=== PATIENT | male | born 1940 | race Caucasian/White ===

== ENCOUNTER 2021-04-17 08:40 | Inpatient (IN) | payer MEDICARE, MEDICAID ==
[~2021-04-17] VITALS: Ht 177.8 cm; Wt 74.2 kg
[2021-04-17] MEDS ORDERED: LevETIRAcetam 1,000 MG in DEXTROSE 5%-WATER 100 ML IV ONE (09:15)
[2021-04-17 09:24] LABS: BASOPHILS % (AUTO) 0.7 % (0.0-2.0); HEMATOCRIT 41.1 % (41-53); HEMOGLOBIN 13.5 g/dL (13.5-17.5); LYMPHOCYTES % (AUTO) 10.6 % (22.0-44.0); MEAN CORPUSCULAR HEMOGLOBIN 31.6 pg (26.0-34.0); MEAN CORPUSCULAR HGB CONC 32.9 G/dL (31.0-37.0); MEAN CORPUSCULAR VOLUME 96 fL (80-100); MONOCYTES # (AUTO) 0.6 K/uL (0.1-1.0); MONOCYTES % (AUTO) 6.6 % (2.0-9.0); NEUTROPHILS # (AUTO) 7.7 K/uL (1.8-7.7); NEUTROPHILS % (AUTO) 80.1 % (40.0-70.0); PLATELET COUNT (AUTO) 325 K/uL (150-450); RED BLOOD CELL COUNT(AUTO) 4.28 MIL/uL (4.50-5.90); RED CELL DISTRIBUTION WIDTH 13.9 % (11.5-14.5)
[2021-04-17 09:30] LABS: COVID AG,FIA SOURCE NASOPHARYNGEAL
[2021-04-17 09:35] LABS: ANION GAP 14 mmol/L (8-16); CALCIUM, TOTAL 8.9 mg/dL (8.8-10.5); CARBON DIOXIDE 25 mmol/L (22-29); CHLORIDE 106 mmol/L (98-107); CREATININE 0.94 mg/dL (0.60-1.30); GLOMERULAR FILTR. RATE CALC > 60 mL/min (>60); GLUCOSE,RANDOM 116 mg/dL (70-110); POTASSIUM 4.2 mmol/L (3.5-5.1); SODIUM SERUM 145 mmol/L (136-145); UREA NITROGEN, BLOOD 29 mg/dL (7-18)
[2021-04-17 09:40] LABS: INR 1.1 (0.9-1.1); PROTHROMBIN TIME 11.4 SEC (9.4-11.6)
[2021-04-17 09:41] LABS: ALANINE AMINOTRANSFERASE 29 U/L (12-78); ALBUMIN 2.9 g/dL (3.4-5.0); ALKALINE PHOSPHATASE 121 U/L (46-116); ASPARTATE AMINOTRANSFERASE 22 U/L (15-37); BILIRUBIN,TOTAL 0.3 mg/dL (0.1-1.0); TOTAL PROTEIN, SERUM 7.3 g/dL (6.4-8.2)
[2021-04-17 09:48] LABS: LACTIC ACID 5.5 mmol/L (0.4-2.0)
[2021-04-17] MEDS ORDERED: ACETAMINOPHEN 1000 MG/ISO-OSM 100 ML IV ONE (10:00)
[2021-04-17] MEDS ORDERED: VANCOMYCIN HCL 1 GM/D5% WATER 200 ML IV ONE (10:00)
[2021-04-17] MEDS ORDERED: PIPERACILLIN/TAZO 3.375 GM/D5W 50 ML IV ONE (10:00)
[2021-04-17] MEDS ORDERED: SODIUM CHLORIDE 0.9% 1,000 ML IV ONE ×2 (10:00→11:45)
[2021-04-17] MEDS ORDERED: ONDANSETRON HCL 4 MG/2 ML VIAL IVP PRN (10:45)
[2021-04-17] MEDS ORDERED: 0.9% SODIUM CHLORIDE 10 ML SYRINGE IVP PRN (10:45)
[2021-04-17] MEDS ORDERED: ACETAMINOPHEN 325 MG TABLET PO PRN (10:45)
[2021-04-17 17:36] VITALS: BP 107/69
[2021-04-17] MEDS ORDERED: COLL30OI TP (20:00)
[2021-04-17] MEDS ORDERED: APIX5TAB4 PO (20:16)
[2021-04-17] MEDS ORDERED: DONE5TAB5 PO (20:16)
[2021-04-17] MEDS ORDERED: FE PR (20:16)
[2021-04-17] MEDS ORDERED: MELA5TAB21 PO (20:16)
[2021-04-17] MEDS ORDERED: MOM30 PO (20:16)
[2021-04-17] MEDS ORDERED: ASCO500 PO (20:16)
[2021-04-17] MEDS ORDERED: MEMA5 PO (20:16)
[2021-04-17] MEDS ORDERED: NUTR1PAC14 PO (20:16)
[2021-04-17] MEDS ORDERED: ATOR20TA65 PO (20:16)
[2021-04-17] MEDS ORDERED: SERT-158 PO (20:16)
[2021-04-17] MEDS ORDERED: DOCU-119 PO (20:16)
[2021-04-17] MEDS ORDERED: MULT-248 PO (20:16)
[2021-04-17] MEDS ORDERED: HYDR25TA82 PO (20:16)
[2021-04-17 20:47] VITALS: BP 118/71
[2021-04-18 00:35] VITALS: BP 117/65
[2021-04-18] MEDS ORDERED: LORazepam 2 MG/ML VIAL ONE (03:44)
[2021-04-18] MEDS: LORazepam 2 MG/ML VIAL IVP PRN (03:50)
[2021-04-18 04:02] VITALS: BP 136/81
[2021-04-18 06:12] LABS: BASOPHILS % (AUTO) 1.4 % (0.0-2.0); EOSINOPHILS % (AUTO) 6.8 % (1.0-6.0); HEMATOCRIT 39.3 % (41-53); HEMOGLOBIN 12.8 g/dL (13.5-17.5); LYMPHOCYTES # (AUTO) 1.6 K/uL (1.0-4.8); LYMPHOCYTES % (AUTO) 20.1 % (22.0-44.0); MEAN CORPUSCULAR HEMOGLOBIN 31.7 pg (26.0-34.0); MEAN CORPUSCULAR HGB CONC 32.7 G/dL (31.0-37.0); MEAN CORPUSCULAR VOLUME 97 fL (80-100); MONOCYTES # (AUTO) 0.7 K/uL (0.1-1.0); MONOCYTES % (AUTO) 9.4 % (2.0-9.0); NEUTROPHILS # (AUTO) 4.8 K/uL (1.8-7.7); NEUTROPHILS % (AUTO) 62.3 % (40.0-70.0); RED BLOOD CELL COUNT(AUTO) 4.05 MIL/uL (4.50-5.90); RED CELL DISTRIBUTION WIDTH 13.9 % (11.5-14.5)
[2021-04-18 06:37] LABS: ALANINE AMINOTRANSFERASE 33 U/L (12-78); ALBUMIN 2.6 g/dL (3.4-5.0); ALKALINE PHOSPHATASE 108 U/L (46-116); ANION GAP 6 mmol/L (8-16); ASPARTATE AMINOTRANSFERASE 18 U/L (15-37); BILIRUBIN,TOTAL 0.4 mg/dL (0.1-1.0); CALCIUM, TOTAL 8.6 mg/dL (8.8-10.5); CARBON DIOXIDE 26 mmol/L (22-29); CHLORIDE 108 mmol/L (98-107); CREATININE 0.63 mg/dL (0.60-1.30); GLUCOSE,RANDOM 92 mg/dL (70-110); POTASSIUM 3.5 mmol/L (3.5-5.1); SODIUM SERUM 140 mmol/L (136-145); TOTAL PROTEIN, SERUM 6.6 g/dL (6.4-8.2); UREA NITROGEN, BLOOD 21 mg/dL (7-18)
[2021-04-18 06:38] LABS: GLOMERULAR FILTR. RATE CALC > 60 mL/min (>60)
[2021-04-18 07:06] LABS: PLATELET COUNT (AUTO) 292 K/uL (150-450)
[2021-04-18 07:20] VITALS: BP 127/74
[2021-04-18] MEDS ORDERED: SODIUM PHOS/SODIUM BIPHOS 133 ML ENEMA PR PRN (07:30)
[2021-04-18] MEDS ORDERED: MAGNESIUM HYDROXIDE SUSPENSION 30 ML UDCUP PO PRN (07:30)
[2021-04-18] MEDS ORDERED: DOCUSATE SODIUM 100 MG CAPSULE PO PRN (07:30)
[2021-04-18] MEDS ORDERED: HydrOXYzine HCL 25 MG TABLET PO PRN (07:30)
[2021-04-18] MEDS: MEMANTINE HCL 5 MG TABLET PO SCH ×2 (08:56→20:29)
[2021-04-18] MEDS: MULTIVITAMINS WITH MINERALS, THERAPEUTIC TABLET PO SCH (08:56)
[2021-04-18] MEDS: SERTRALINE HCL 50 MG TABLET PO SCH (08:56)
[2021-04-18] MEDS: ASCORBIC ACID 500 MG TABLET PO SCH (08:56)
[2021-04-18] MEDS: APIXABAN 5 MG TABLET PO SCH ×2 (08:56→20:29)
[2021-04-18] MEDS ORDERED: [UNRECOGNIZED DRUG - OTHER] PO SCH (09:00)
[2021-04-18] MEDS ORDERED: APIX5TAB PO (10:41)
[2021-04-18 12:10] VITALS: BP 129/71
[2021-04-18] MEDS ORDERED: VANCOMYCIN HCL 1 GM/D5% WATER 200 ML IV ONE (14:00)
[2021-04-18 16:00] VITALS: BP 101/67
[2021-04-18] MEDS: VANCOMYCIN HCL 1 GM/D5% WATER 200 ML IV SCH (20:28)
[2021-04-18] MEDS: MELATONIN 5 MG TABLET PO PRN (20:29)
[2021-04-18] MEDS: DONEPEZIL HCL 5 MG TABLET PO SCH (20:29)
[2021-04-18] MEDS: ATORVASTATIN CALCIUM 20 MG TABLET PO SCH (20:29)
[2021-04-18] MEDS: LevETIRAcetam 500 MG TABLET PO SCH (20:29)
[2021-04-18 20:44] VITALS: BP 117/73
[2021-04-19] VITALS (7 sets, daily range): BP systolic 102–119; BP diastolic 57–86
[2021-04-19 08:37] LABS: ANION GAP 8 mmol/L (8-16); CALCIUM, TOTAL 8.1 mg/dL (8.8-10.5); CARBON DIOXIDE 25 mmol/L (22-29); CHLORIDE 103 mmol/L (98-107); CREATININE 0.89 mg/dL (0.60-1.30); GLUCOSE,RANDOM 84 mg/dL (70-110); POTASSIUM 3.6 mmol/L (3.5-5.1); SODIUM SERUM 136 mmol/L (136-145); UREA NITROGEN, BLOOD 22 mg/dL (7-18)
[2021-04-19 08:44] LABS: GLOMERULAR FILTR. RATE CALC > 60 mL/min (>60)
[2021-04-19] MEDS: SERTRALINE HCL 50 MG TABLET PO SCH (08:51)
[2021-04-19] MEDS: LevETIRAcetam 500 MG TABLET PO SCH ×2 (08:51→22:38)
[2021-04-19] MEDS: VANCOMYCIN HCL 1 GM/D5% WATER 200 ML IV SCH ×2 (08:51→22:55)
[2021-04-19] MEDS: DONEPEZIL HCL 5 MG TABLET PO SCH (08:52)
[2021-04-19] MEDS: MULTIVITAMINS WITH MINERALS, THERAPEUTIC TABLET PO SCH (08:52)
[2021-04-19] MEDS: ASCORBIC ACID 500 MG TABLET PO SCH (08:52)
[2021-04-19] MEDS: APIXABAN 5 MG TABLET PO SCH ×2 (08:52→22:38)
[2021-04-19] MEDS: MEMANTINE HCL 5 MG TABLET PO SCH ×2 (08:55→22:38)
[2021-04-19] MEDS: LORazepam 2 MG/ML VIAL IVP PRN ×2 (09:06→22:55)
[2021-04-19] MEDS ORDERED: LEVE500T20 PO (18:15)
[2021-04-19] MEDS: ATORVASTATIN CALCIUM 20 MG TABLET PO SCH (22:38)
[2021-04-19] MEDS: ETHYL ALCOHOL 62% ANTISEPTIC NASAL INHALANT 0.6 ML AMPUL NASAL SCH (22:39)
[2021-04-20 04:15] VITALS: BP 116/72
[2021-04-20 06:58] VITALS: BP 106/75
[2021-04-20] MEDS: VANCOMYCIN HCL 1 GM/D5% WATER 200 ML IV SCH (08:00)
[2021-04-20 08:58] LABS: ANION GAP 3 mmol/L (8-16); CALCIUM, TOTAL 8.6 mg/dL (8.8-10.5); CARBON DIOXIDE 29 mmol/L (22-29); CHLORIDE 105 mmol/L (98-107); CREATININE 0.68 mg/dL (0.60-1.30); GLUCOSE,RANDOM 86 mg/dL (70-110); POTASSIUM 3.9 mmol/L (3.5-5.1); SODIUM SERUM 137 mmol/L (136-145); UREA NITROGEN, BLOOD 15 mg/dL (7-18); VANCOMYCIN,RANDOM 14.9 mcg/mL (25.0-50.0)
[2021-04-20 08:59] LABS: GLOMERULAR FILTR. RATE CALC > 60 mL/min (>60)
[2021-04-20] MEDS: MEMANTINE HCL 5 MG TABLET PO SCH ×2 (10:14→20:31)
[2021-04-20] MEDS: APIXABAN 5 MG TABLET PO SCH ×2 (10:14→20:33)
[2021-04-20] MEDS: LevETIRAcetam 500 MG TABLET PO SCH ×2 (10:14→20:32)
[2021-04-20] MEDS: SERTRALINE HCL 50 MG TABLET PO SCH (10:14)
[2021-04-20] MEDS: ASCORBIC ACID 500 MG TABLET PO SCH (10:16)
[2021-04-20] MEDS: ETHYL ALCOHOL 62% ANTISEPTIC NASAL INHALANT 0.6 ML AMPUL NASAL SCH ×2 (10:17→20:33)
[2021-04-20] MEDS: MULTIVITAMINS WITH MINERALS, THERAPEUTIC TABLET PO SCH (10:17)
[2021-04-20 11:11] VITALS: BP 112/72
[2021-04-20 15:07] VITALS: BP 104/79
[2021-04-20 19:37] VITALS: BP 105/64
[2021-04-20] MEDS: ATORVASTATIN CALCIUM 20 MG TABLET PO SCH (20:31)
[2021-04-20] MEDS: DONEPEZIL HCL 5 MG TABLET PO SCH (20:31)
[2021-04-20 23:35] VITALS: BP 120/61
[2021-04-21 03:32] VITALS: BP 93/53
[2021-04-21 08:08] VITALS: BP 106/81
[2021-04-21] MEDS: MULTIVITAMINS WITH MINERALS, THERAPEUTIC TABLET PO SCH (08:25)
[2021-04-21] MEDS: APIXABAN 5 MG TABLET PO SCH ×2 (08:25→21:22)
[2021-04-21] MEDS: LevETIRAcetam 500 MG TABLET PO SCH ×2 (08:26→21:22)
[2021-04-21] MEDS: SERTRALINE HCL 50 MG TABLET PO SCH (08:26)
[2021-04-21] MEDS: MEMANTINE HCL 5 MG TABLET PO SCH ×2 (08:26→22:00)
[2021-04-21] MEDS: ASCORBIC ACID 500 MG TABLET PO SCH (08:26)
[2021-04-21 10:17] LABS: EOSINOPHILS % (AUTO) 6.1 % (1.0-6.0); HEMATOCRIT 44.1 % (41-53); HEMOGLOBIN 14.6 g/dL (13.5-17.5); LYMPHOCYTES # (AUTO) 1.8 K/uL (1.0-4.8); LYMPHOCYTES % (AUTO) 25.7 % (22.0-44.0); MEAN CORPUSCULAR HEMOGLOBIN 31.8 pg (26.0-34.0); MEAN CORPUSCULAR HGB CONC 33.2 G/dL (31.0-37.0); MEAN CORPUSCULAR VOLUME 96 fL (80-100); MONOCYTES # (AUTO) 0.6 K/uL (0.1-1.0); MONOCYTES % (AUTO) 8.2 % (2.0-9.0); NEUTROPHILS # (AUTO) 4.1 K/uL (1.8-7.7); PLATELET COUNT (AUTO) 306 K/uL (150-450); RED BLOOD CELL COUNT(AUTO) 4.61 MIL/uL (4.50-5.90); RED CELL DISTRIBUTION WIDTH 13.4 % (11.5-14.5)
[2021-04-21 12:03] VITALS: BP 101/65
[2021-04-21 16:19] VITALS: BP 111/73
[2021-04-21 20:15] VITALS: BP 105/55
[2021-04-21] MEDS: ETHYL ALCOHOL 62% ANTISEPTIC NASAL INHALANT 0.6 ML AMPUL NASAL SCH ×2 (21:00→21:35)
[2021-04-21] MEDS: DONEPEZIL HCL 5 MG TABLET PO SCH (21:21)
[2021-04-21] MEDS: MELATONIN 5 MG TABLET PO PRN (21:21)
[2021-04-21] MEDS: ATORVASTATIN CALCIUM 20 MG TABLET PO SCH (21:22)
[2021-04-22 00:48] VITALS: BP 96/65
[2021-04-22 04:50] VITALS: BP 101/49
[2021-04-22 06:55] LABS: BASOPHILS % (AUTO) 0.9 % (0.0-2.0); EOSINOPHILS % (AUTO) 7.3 % (1.0-6.0); HEMATOCRIT 38.4 % (41-53); HEMOGLOBIN 12.7 g/dL (13.5-17.5); LYMPHOCYTES % (AUTO) 24.5 % (22.0-44.0); MEAN CORPUSCULAR HEMOGLOBIN 31.3 pg (26.0-34.0); MEAN CORPUSCULAR VOLUME 95 fL (80-100); MONOCYTES # (AUTO) 0.9 K/uL (0.1-1.0); MONOCYTES % (AUTO) 10.8 % (2.0-9.0); NEUTROPHILS # (AUTO) 4.7 K/uL (1.8-7.7); NEUTROPHILS % (AUTO) 56.5 % (40.0-70.0); PLATELET COUNT (AUTO) 279 K/uL (150-450); RED BLOOD CELL COUNT(AUTO) 4.05 MIL/uL (4.50-5.90); RED CELL DISTRIBUTION WIDTH 13.6 % (11.5-14.5)
[2021-04-22 07:23] LABS: ANION GAP 5 mmol/L (8-16); CALCIUM, TOTAL 8.7 mg/dL (8.8-10.5); CARBON DIOXIDE 29 mmol/L (22-29); CHLORIDE 104 mmol/L (98-107); CREATININE 0.71 mg/dL (0.60-1.30); GLOMERULAR FILTR. RATE CALC > 60 mL/min (>60); GLUCOSE,RANDOM 80 mg/dL (70-110); SODIUM SERUM 138 mmol/L (136-145); UREA NITROGEN, BLOOD 17 mg/dL (7-18)
[2021-04-22 08:09] VITALS: BP 122/78
[2021-04-22 08:13] VITALS: BP 102/74
[2021-04-22] MEDS: ETHYL ALCOHOL 62% ANTISEPTIC NASAL INHALANT 0.6 ML AMPUL NASAL SCH (09:45)
[2021-04-22] MEDS: APIXABAN 5 MG TABLET PO SCH (09:46)
[2021-04-22] MEDS: LevETIRAcetam 500 MG TABLET PO SCH (09:46)
[2021-04-22] MEDS: SERTRALINE HCL 50 MG TABLET PO SCH (09:46)
[2021-04-22] MEDS: MEMANTINE HCL 5 MG TABLET PO SCH (09:46)
[2021-04-22] MEDS: ASCORBIC ACID 500 MG TABLET PO SCH (09:47)
[2021-04-22] MEDS: MULTIVITAMINS WITH MINERALS, THERAPEUTIC TABLET PO SCH (09:47)
[2021-04-22 11:55] VITALS: BP 96/60
[2021-04-22 16:00] VITALS: BP 112/67
== END 2021-04-22 19:25 | DRG 101 ==
LOC: EMS 08:41 → 5N 16:32
PROVIDERS: ADMIT Hospitalist; ATTEND Hospitalist
DX: G40.909 Epilepsy, unspecified, not intractable, without status epilepticus (principal); R41.4 Neurologic neglect syndrome; G83.84 Todd's paralysis (postepileptic); G30.9 Alzheimer's disease, unspecified; I48.91 Unspecified atrial fibrillation; I10 Essential (primary) hypertension; F02.80 Dementia in other diseases classified elsewhere, unspecified severity, without behavioral disturbance, psychotic disturbance, mood disturbance, and anxiety; Z66 Do not resuscitate; M19.90 Unspecified osteoarthritis, unspecified site; Z20.822 Contact with and (suspected) exposure to COVID-19; Z79.01 Long term (current) use of anticoagulants; Z86.73 Personal history of transient ischemic attack (TIA), and cerebral infarction without residual deficits
CPT/HCPCS: 70450; 70496; 70498; 71045; 80048; 80053; 80202; 83605; 83880; 84484; 85025; 85610; 85730; 86850; 86900; 86901; 87040; 87077; 87081; 87186; 87205; 92610; 93005; 99291; J0712; J2060; J3370; J7030; J7060; Q9967; 36415-L1; 36415-TC; U0003